=== PATIENT | female | born 1970 | race Two or more races ===

== ENCOUNTER 2024-12-24 08:00 | Day surgery (SDC) | payer BC, SELFPAY ==
--- NOTE | 2024-12-21 10:50 | EKG_ITS ---
[facility] Test Date: 2024-12-21 Pat Name: WAYLON AGUILAR Department: Room: - Gender: Female [employer] Director: SHLOMO : 1970 Requested By: Sheila Davidson Order Number: [id number] Reading MD: Sheila Davidson Measurements Intervals [place] Rate: 78 P: 37 MO: 151 QRS: 46 QRSD: 88 T: 45 QT: 330 QTc: 377 Interpretive Statements SINUS RHYTHM WITH OCCASIONAL VENTRICULAR PREMATURE COMPLEXES LOW QRS VOLTAGE IN PRECORDIAL LEADS [QRS DEFLECTION < 1.0 mV IN CHEST LEADS] No previous ECG available for comparison /[email or web address]/[id number].pdf
[2024-12-21 11:48] LABS: HCG Qualitative,Urine Negative
[2024-12-21 11:48] LABS: Alanine Aminotransferase 20 U/L (10-49); Albumin, Serum 4.6 gm/dL (3.5-5.0); Albumin/Globulin Ratio 1.5 (1.2-2.2); Alkaline Phosphatase 71 U/L (46-116); Anion Gap 8 (7-16); Aspartate Amino Transferase 21 U/L (0-34); BUN/Creatinine Ratio 12 Ratio (12-20); Bilirubin,Total 0.5 mg/dL (0.3-1.2); Blood Urea Nitrogen 12 mg/dL (9-23); Calcium 9.4 mg/dL (8.3-10.6); Calcium (Corrected) 9.4 mg/dL (8.5-10.1); Carbon Dioxide 26.1 mMol/L (20.0-31.0); Chloride 107 mMol/L (98-107); Globulin 3.1 gm/dL (2.3-3.5); Glucose 149 mg/dL (74-106); Osmolality,Calculated 283 (275-295); Sodium 141 mMol/L (136-145); Total Protein 7.7 gm/dL (5.7-8.2); eGFR > 60 See Note
[2024-12-21 12:17] LABS: Partial Thromboplastin Time 23.9 Seconds (22.0-36.0); Prothrombin Time 11.2 Seconds (9.0-12.2)
[2024-12-21 14:16] VITALS: BMI 46.6
[2024-12-24 08:49] VITALS: BP 147/79; PULSE 99; RESP 18; TEMP 36.2; O2SAT 96; BMI 45.5
[2024-12-24] MEDS: RINGERS LACTATED 1000 ML 1,000 ML 60 ML IV (09:54)
[2024-12-24 09:55] VITALS: BP 124/40; PULSE 87; RESP 18; O2SAT 100
[2024-12-24] MEDS: LIDOCAINE JELLY 2% (Urojet) 10 ML TUBE TOP (10:00)
[2024-12-24 10:25] VITALS: BP 106/57; PULSE 72; RESP 33; TEMP 36.9; O2SAT 95
[2024-12-24 10:35] VITALS: BP 111/52; PULSE 68; RESP 23; O2SAT 96
[2024-12-24 10:45] VITALS: BP 120/47; PULSE 85; RESP 24; O2SAT 98
[2024-12-24 10:55] VITALS: BP 119/81; PULSE 74; RESP 23; O2SAT 100
== END 2024-12-24 11:12 | disposition home or self-care (01) ==
PROVIDERS: PCP Registered Nurse Community Health; Referring Provider Specialist; Visit Provider Specialist
PROC: 0DBE8ZX Excision of Large Intestine, Via Natural or Artificial Opening Endoscopic, Diagnostic (ICD-10-PCS; CPT 45380; principal; 2024-12-24 09:45)
DX: D12.3 Benign neoplasm of transverse colon (principal); D12.4 Benign neoplasm of descending colon; K64.9 Unspecified hemorrhoids; K57.30 Diverticulosis of large intestine without perforation or abscess without bleeding; Z01.810 Encounter for preprocedural cardiovascular examination
CPT/HCPCS: 45385; 45380; 36415; 80053; 81025; 85610; 85730; 93005; J7120